=== PATIENT | male | born 1965 | race Caucasian/White ===

== ENCOUNTER → 2020-08-12 | Day surgery (SDC) | payer BC ==
[~2020-08-12] MED LIST: BUPIVACAINE 0.5% VIAL IJ ONE; Depo-Medrol 40 MG/ML IM ONE; Xylocaine 1% Vial 30 ML PF IJ ONE
--- NOTE | 2020-08-13 08:38 | XRAY ---
Indication: Left shoulder injection. Intraoperative fluoroscopy provided for 24 seconds. 2 digital spot image submitted for interpretation demonstrates needle tip projecting over the left glenohumeral joint superiorly. Small amount of contrast injected for needle tip placement. Correlate with intraoperative findings/report.
--- NOTE | 2020-08-13 08:40 | XRAY ---
21 seconds fluoroscopy time in surgery for intra-articular injection of the right shoulder.
--- NOTE | 2020-08-13 08:40 | XRAY ---
24 seconds fluoroscopy time in surgery for intra-articular injection of the left shoulder.
--- NOTE | 2020-08-13 08:47 | XRAY ---
Indication: Right shoulder injection. Intraoperative fluoroscopy provided for 21 seconds. 2 digital spot image submitted for interpretation demonstrates needle tip projecting over the right glenohumeral joint superiorly. Small amount of contrast injected for needle tip placement. Correlate with intraoperative findings/report.
== END ==
LOC: SDC-PAIN 17:05
PROVIDERS: ATTEND Psychiatry & Neurology Pain Medicine
DX: M19.012 Primary osteoarthritis, left shoulder (principal); M19.011 Primary osteoarthritis, right shoulder; E11.9 Type 2 diabetes mellitus without complications; I10 Essential (primary) hypertension; G47.30 Sleep apnea, unspecified; Z79.899 Other long term (current) drug therapy
CPT/HCPCS: 73030; 77002; 82947; J1030; J2001